=== PATIENT | female | born 1975 | race African-American/Black ===

== ENCOUNTER 2019-12-16 11:34 | Emergency (ER) | payer OTHER ==
[~2019-12-16] VITALS: Ht 152.4 cm; Wt 90.7 kg
[2019-12-16] MEDS ORDERED: ENOXAPARIN SODIUM INJ 100 MG/ML SYR SC STA ×2 (12:01→14:36)
[2019-12-16] MEDS ORDERED: ASPIRIN 81 MG CHEW TAB PO STA (12:01)
--- NOTE | 2019-12-16 12:39 | Diagnostic Imaging Report ---
EXAM: CXR 1 VIEW DATE: 12/16/2019 12:17 PM INDICATION: Chest pain COMPARISON: None FINDINGS: The trachea is midline. The lungs are symmetrically expanded without evidence for large focal consolidation, pneumothorax, or significant pleural effusion. The cardiomediastinal silhouette and pulmonary vasculature are within normal limits. No acute osseous abnormality is identified. The surrounding soft tissues are unremarkable. IMPRESSION: No acute cardiopulmonary process identified. Signed by: Dr. Bautista Schuster MD on 12/16/2019 12:36 PM
[2019-12-16] MEDS ORDERED: NITROGLYCERIN 2% OINT 1 GM PKT TOP ONE ×2 (13:30→14:45)
[2019-12-16] MEDS ORDERED: ASPIRIN 325 MG TAB ONE (13:55)
[2019-12-16] MEDS ORDERED: ENOXAPARIN SODIUM INJ 100 MG/ML SYR SC ONE (13:55)
[2019-12-16] MEDS ORDERED: NITROGLYCERIN 2% OINT 1 GM PKT ONE (13:55)
--- NOTE | 2019-12-16 13:58 | Emergency Department Note ---
History of Present Illnes History of Present Illness Chief Complaint: worsening Chest Pain History of Present Illness This is a 44 year old female. was doing well until 3 weeks ago then i ntermittent left chest tightness/pain radiating to lue, then intermittent blurry vision, then 2 weeks ago pt saw pcp and had a normal ekg, then saw a qm consultant last week. 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 office told pt to go to the er) Historian: Patient Arrival Mode: Car History limited by: condition of the patient (normal) Onset (how long ago): hour(s) (5.5) Location: left chest Quality: tightness/ Radiation: Reports extremity (lue) Severity: moderate Timing of current episode: constant Progression: worsening Chronicity: recurrent Context: Denies recent illness, Denies recent surgery, Denies recent immobilization, Denies recent travel, Denies trauma/injury, Denies new medications, Denies non-compliance w/ medications Relieving factors: none Exacerbating factors: none Associated symptoms: Reports chest pain Treatments prior to arrival: none Past Medical/Family History Physician Review I have reviewed the patient's past medical and family history. Any updates have been documented here. Past Medical History Recent Fever: No Clinical Suspicion of Infectio: No New/Unexplained Change in Ment: No Past Medical History: Anxiety Other Surgery: left foot surgery Social History Smoking Cessation: Never Smoker Counseling Performed: No Alcohol Use: Social Any Illegal Drug Use: No TB Exposure/Symptoms: No Physically hurt or threatened: No Family History Family history of heart diseas: No Other Any Pre-Existing Lines (PICC,: No Is patient up to date on immun: No Review of Systems Review of Systems Constitutional: Reports no symptoms EENTM: Reports no symptoms Cardiovascular: Reports as per HPI Respiratory: Reports no symptoms Gastrointestinal: Reports no symptoms Genitourinary: Reports no symptoms Musculoskeletal: Reports no symptoms Integumentary: Reports no symptoms Neurological: Reports no symptoms Psychological: Reports no symptoms Endocrine: Reports no symptoms Hematological/Lymphatic: Reports no symptoms Review of other systems: All other systems negative Physical Exam Related Data Allergies: Coded Allergies: No Known Allergies (Unverified , 12/16/19) Triage Vital Signs Vital Signs Date Time Temp Pulse Resp B/P (MAP) Pulse Ox O2 Delivery O2 Flow Rate FiO2 12/16/19 11:38 96.0 67 19 167/98 99 Vital signs reviewed: Yes Physical Exam CONSTITUTIONAL Constitutional: Present well-developed, Present well-nourished HENT HENT: Present normocephalic, Present atraumatic, Present oropharynx clear/moist, Present nose normal HENT L/R: Present left ext ear normal, Present right ext ear normal EYES Eyes: Reports PERRL, Reports conjunctivae normal NECK Neck: Present ROM normal, Present supple PULMONARY Pulmonary: Present effort normal, Present breath sounds normal CARDIOVASCULAR Cardiovascular: Present regular rhythm, Present heart sounds normal, Present capillary refill normal, Present normal rate GASTROINTESTINAL Abdominal: Present soft, Present nontender, Present bowel sounds normal GENITOURINARY Genitourinary: Present exam deferred SKIN Skin: Present warm, Present dry MUSCULOSKELETAL Musculoskeletal: Present ROM normal NEUROLOGICAL Neurological: Present alert, Present oriented x 3, Present no gross motor or sensory deficits PSYCHOLOGICAL Psychological: Present mood/affect normal, Present judgement normal Results Laboratory Lab results reviewed: Yes (nl cbc, nl cmp, nl coags, nl d dimer, nl cardiac enzymes,) Imaging Imaging results reviewed: Yes (cxr wnl) Procedures 12 Lead ECG Interpretation ECG Interpretation : ECG: ECG 1 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 and accepts transfer of pt. no more cp s/p meds Reassessment Reassessment pt refused nitro and lovenox initally then eventually prior to transfer pt took nitro and lovenox Assessment & Plan Final Impression: (1) Acute chest pain (2) Chest pain, rule out acute myocardial infarction (3) Acute electrocardiogram changes Last Vital Signs Date Time Temp Pulse Resp B/P (MAP) Pulse Ox O2 Delivery O2 Flow Rate FiO2 12/16/19 11:38 96.0 67 19 167/98 99 Medications in the ED Aspirin 324 mg ONCE STAT PO ; Start 12/16/19 at 12:01; Stop 12/16/19 at 12:06; Status DC Enoxaparin Sodium 90 mg NOW STAT SC ; Start 12/16/19 at 12:01; Stop 12/16/19 at 12:07; Status DC Nitroglycerin 1 gm ONCE ONCE TOP ; Start 12/16/19 at 13:30; Stop 12/16/19 at 13:31; Status DC HARIS ESPINOZA Dec 16, 2019 13:58
--- NOTE | 2019-12-16 15:15 | NUR ---
Report to MARCOS Prakash [phone]
[2019-12-16 16:15] VITALS: BP 145/76
== END 2019-12-16 15:25 | disposition other institution (70) ==
LOC: FSED 11:34
DX: R07.9 Chest pain, unspecified (principal); R94.31 Abnormal electrocardiogram [ECG] [EKG]; F41.9 Anxiety disorder, unspecified
CPT/HCPCS: 71045; 80053; 82553; 83880; 84484; 85025; 85379; 85610; 93005; 99284; J1650